=== PATIENT | male | born 1965 | race Two or more races ===

== ENCOUNTER 2024-03-02 20:47 | Emergency (ER) | payer MEDICAID, OTHER ==
[~2024-03-02] VITALS: Ht 177.8 cm; Wt 107.7 kg
[2024-03-02 22:40] VITALS: BP 105/80; PULSE 90; RESP 18; TEMP 98; O2SAT 97
[2024-03-02] MEDS ORDERED: COLC1CAP PO (22:55)
--- NOTE | 2024-03-02 22:55 | ED.PDOC ---
Back pain HPI HPI Comments This is a 58-year-old male presents to the ED chief complaint right hand pain 2 days. Patient states stiffness and redness right hand knuckle pointer finger. He has not taken anything [id number], reports history of gout currently on allopurinol. Denies fevers, chills, nausea, vomiting or injury. Chief Complaint: Upper Extremity Time Seen by MD: 21:05 Reviewed Notes: Nurses Notes, Medications, Allergies Allergies: Coded Allergies: Ibuprofen (Verified Allergy, Unknown, 03/02/24) Home Meds Active Scripts Colchicine (Colchicine) 0.6 Mg Cap, 0.6 MG PO ONCE for 1 Day, #3 CAP 2 capsules now repeat 1 capsule in 1 hour. Prov:CARLIE RODRIGUEZ RAG WASHER 03/02/24 Information Source: Patient Mode of Arrival: Ambulatory Past Medical History PAST MEDICAL HISTORY: Denies Past Medical History (Other): Gout Surgical History: Denies all surgeries Constitutional: denies: chills, diaphoresis, fatigue, fever, malaise, sweats, weakness, others EENTM: denies: blurred vision, double vision, ear bleeding, ear discharge, ear drainage, ear pain, ear ringing, eye pain, eye redness, hearing loss, mouth pain, mouth swelling, nasal discharge, nose bleeding, nose congestion, nose pain, photophobia, tearing, throat pain, throat swelling, voice changes, others Respiratory: denies: cough, hemoptysis, orthopnea, SOB at rest, shortness of breath, SOB with excertion, stridor, wheezing, others Cardiovascular: denies: chest pain, dizzy spells, diaphoresis, Dyspnea on exertion, edema, irregular heart beat, left arm pain, lightheadedness, palpit ations, PND, syncope, others Gastrointestinal: denies: abdomen distended, abdominal pain, blood streaked b owels, constipated, diarrhea, dysphagia, difficulty swallowing, hematemesis, melena, nausea, poor appetite, poor fluid intake, rectal bleeding, rectal pain, vomiting, others Genitourinary: denies: burning, dysuria, flank pain, frequency, hematuria, incontinence, penile discharge, penile sore, pain, testicle pain, testicle swelling, urgency, others Neurological: denies: dizziness, fainting, headache, left sided numbness, left sided weakness, numbness, paresthesia, pre-existing deficit, right sided numbness, right sided weakness, seizure, speech problems, tingling, tremors, weakness, others Musculoskeletal: reports: joint swelling (Right pointer finger knuckle); denies: back pain, gout, joint pain, muscle pain, muscle stiffness, neck pain, others Integumetry: denies: bruises, change in color, change in hair/nails, dryness, laceration, lesions, lumps, rash, wounds, others Allergic/Immunocompromised: denies: Difficulty Healing, Frequent Infections, Hives, Itching, others Endocrine: denies: excessive hunger, excessive sweating, excessive thirst, excessive urination, flushing, intolerance to cold, intolerance to heat, unexplained weight gain, unexplained weight loss, others Psychiatric: denies: anxiety, bipolar disorder, depression, hopeless, panic disorder, schizophrenia, sleepless, suicidal, others Physical Exam General Appearance: No Apparent Distress, Normal HEENT: Pharynx Normal Neck: Full Range of Motion, Non-Tender Respiratory: Lungs Clear, No Respiratory Distress, Normal Breath Sounds Cardiovascular: No Edema, No JVD, No Murmur, No Gallop, Normal Peripheral Pulses, Regular Rate/Rhythm Breast Exam: Deferred Gastrointestinal: No Organomegaly, Non Tender, No Pulsatile Mass, Normal Bowel Sounds, Soft Genitalia: Deferred Pelvic: Deferred Rectal: Deferred Extremities: Normal capillary refill, Normal inspection, Normal range of motion, Non-tender, No pedal edema Musculoskeletal : Location: Right (Right pointer finger noted erythema moderate tenderness to touch trace edema. No noted streaking, excoriations, lesions, abrasions or lacerations. Ecchymosis) Apperance: Normal Neurologic: Alert, business liaison officer II-XII nml as Tested, No Motor Deficits, Normal Affect, Normal Mood, No Sensory Deficits Cerebellar Function: Normal Reflexes: Normal Skin: Dry, Normal Color, Warm Lymphatic: No Adenopathy Was a procedure done? Was a procedure done?: No Back Pain Differential Dx Differential Diagnosis: Musculoskeletal Pain X-Ray, Labs, Meds, VS Vital Signs Date Time Temp Pulse Resp B/P (MAP) Pulse Ox O2 Delivery O2 Flow Rate FiO2 03/02/24 22:40 98.0 90 18 105/80 (88) 96 98.0 12/25/24 22:40 90 18 97 Room Air* 0 21 03/02/24 21:34 97.9 93 18 105/80 (88) 95 Current Medications Medications (Trade) Dose Ordered Sig/Rupert Route Start Time Stop Time Status Last Admin Dexamethasone Sodium Phosphate (Decadron Injection) 10 mg ONCE ONCE IM 03/02/24 23:00 03/02/24 23:01 DC 03/02/24 23:02 X-Ray, Labs, Meds, VS Comment Patient Decadron 10 mg IM reports improvement requesting discharge at this time. Patient on colchicine advised to continue allopurinol follow up with his PCP in 2-3 days consider uric acid levels if symptoms persist. Rest, elevate extremity use heat or ice. ER return precautions given patient indicated understanding agrees with discharge plan of care. Time of 1ST Reevaluation: 22:50 Reevaluation 1ST: Improved Patient Education/Counseling: Diagnosis, Treatment, Prognosis, Need For Follow Up Family Education/Counseling: No Family Present Departure 1 Departure Time of Disposition: 22:55 Impression: Primary Impression: Acute gout Qualified Codes: M10.9 - Gout, unspecified Disposition: 01 HOME / SELF CARE / HOMELESS Condition: Stable e-Prescriptions Colchicine (Colchicine) 0.6 Mg Cap 0.6 MG PO ONCE for 1 Day, #3 CAP 2 capsules now repeat 1 capsule in 1 hour. Prov: CARLIE RODRIGUEZ 03/02/24 Discharged With: Self Critical Care Note Critical Care Time?: No Stability Stability form required: CARLIE Hernadez Mar 02, 2024 22:55
[2024-03-02] MEDS: DexAMETHasone SOD PHOS 10MG/1ML VIAL INJ IM ONE (23:02)
== END 2024-03-02 23:20 | disposition home or self-care (01) ==
LOC: ER 20:47
DX: M10.9 Gout, unspecified (principal); Z88.6 Allergy status to analgesic agent; Z79.899 Other long term (current) drug therapy
CPT/HCPCS: 96372; 99283; J1100

== ENCOUNTER 2024-03-04 18:31 | Emergency (ER) | payer MEDICAID ==
[~2024-03-04] VITALS: Ht 177.8 cm; Wt 103.0 kg
[~2024-03-04 18:31] MED LIST: COLC1CAP PO
--- NOTE | 2024-03-04 20:05 | ED.PDOC ---
Musculoskeletal HPI Comments 58y M who presents to the ED for chief complaint of upper extremity pain. Pt states he was recently dx with gout a few days ago. Pt states he has gout of his R hand and states he received steroid shot and given perscription of colchicine but states due to insurance, he was unable to afford it and came to the ED for pain management. Pt rates the pain 10/10, constant, with no associated exacerbating or relieving factors. Pt otherwise denies any other symptoms at this time. Chief Complaint: Upper Extremity Time Seen by MD: 20:05 Reviewed Notes: Medications Allergies: Coded Allergies: Ibuprofen (Verified Allergy, Unknown, 03/02/24) Information Source: Patient Mode of Arrival: Ambulatory Past Medical History PAST MEDICAL HISTORY: Denies Surgical History: Denies all surgeries Social History Smoker: Non-Smoker Alcohol: Denies ETOH Use Drugs: Denies Drug Use Lives In: Home Constitutional: denies: chills, diaphoresis, fatigue, fever, malaise, sweats, weakness, others EENTM: denies: blurred vision, double vision, ear bleeding, ear discharge, ear drainage, ear pain, ear ringing, eye pain, eye redness, hearing loss, mouth bryan n, mouth swelling, nasal discharge, nose bleeding, nose congestion, nose pain, photophobia, tearing, throat pain, throat swelling, voice changes, others Respiratory: denies: cough, hemoptysis, orthopnea, SOB at rest, shortness of breath, SOB with excertion, stridor, wheezing, others Cardiovascular: denies: chest pain, dizzy spells, diaphoresis, Dyspnea on exertion, edema, irregular heart beat, left arm pain, lightheadedness, palpitations, PND, syncope, others Gastrointestinal: denies: abdomen distended, abdominal pain, blood streaked bowels, constipated, diarrhea, dysphagia, difficulty swallowing, hematemesis, melena, nausea, poor appetite, poor fluid intake, rectal bleeding, rectal pain, vomiting, others Genitourinary: denies: burning, dysuria, flank pain, frequency, hematuria, incontinence, penile discharge, penile sore, pain, testicle pain, testicle swelling, urgency, others Neurological: denies: dizziness, fainting, headache, left sided numbness, left sided weakness, numbness, paresthesia, pre-existing deficit, right sided numbness, right sided weakness, seizure, speech problems, tingling, tremors, weakness, others Musculoskeletal: reports: joint pain (R hand); denies: back pain, gout, joint swelling, muscle pain, muscle stiffness, neck pain, others Integumetry: denies: bruises, change in color, change in hair/nails, dryness, laceration, lesions, lumps, rash, wounds, others Allergic/Immunocompromised: denies: Difficulty Healing, Frequent Infections, Hives, Itching, others Hematologic/Lymphatic: denies: anemia, blood clots, easy bleeding, easy bruising, swollen glands, others Endocrine: denies: excessive hunger, excessive sweating, excessive thirst, excessive urination, flushing, intolerance to cold, intolerance to heat, unexplained weight gain, unexplained weight loss, others Psychiatric: denies: anxiety, bipolar disorder, depression, hopeless, panic disorder, schizophrenia, sleepless, suicidal, others All Other Systems: Reviewed and Negative Physical Exam General Appearance: No Apparent Distress, Normal HEENT: Normal ENT Inspection, Pharynx Normal, TMs Normal Neck: Full Range of Motion, Non-Tender, Normal, Normal Inspection Respiratory: Chest Non-Tender, Lungs Clear, No Accessory Muscle Use, No Respiratory Distress, Normal Breath Sounds Cardiovascular: No Edema, No JVD, No Murmur, No Gallop, Normal Peripheral Pulses, Regular Rate/Rhythm Breast Exam: Deferred Gastrointestinal: No Organomegaly, Non Tender, No Pulsatile Mass, Normal Bowel Sounds, Soft Genitalia: Deferred Pelvic: Deferred Rectal: Deferred Extremities: Other (R hand sweling and pain) Musculoskeletal : Apperance: Normal Neurologic: Alert, upper leather cutter II-XII nml as Tested, No Motor Deficits, Normal Affect, Normal Mood, No Sensory Deficits Cerebellar Function: Normal Reflexes: Normal Skin: Dry, Normal Color, Warm Lymphatic: No Adenopathy Was a procedure done? Was a procedure done?: No Differential Diagnosis EXT Differential Diagnosis: Sprain, Gout, Rheumatoid, Arthritis X-Ray, Labs, Meds, VS Vital Signs Date Time Temp Pulse Resp B/P (MAP) Pulse Ox O2 Delivery O2 Flow Rate FiO2 03/04/24 20:54 98.1 87 16 114/71 (85) 96 98.1 03/04/24 19:00 98.2 87 16 105/83 (90) 96 Time of 1ST Reevaluation: 20:35 Reevaluation 1ST: Unchanged Patient Education/Counseling: Diagnosis, Treatment, Prognosis, Need For Follow Up Family Education/Counseling: No Family Present Departure 1 Departure Time of Disposition: 17:47 Impression: Primary Impression: Acute gout Qualified Codes: M10.9 - Gout, unspecified Disposition: 01 HOME / SELF CARE / HOMELESS Condition: Good Discharged With: Self Critical Care Note Critical Care Time?: No Stability Stability form required: No Heart Score Heart Score: Heart Score Response (Comments) Value History N/A 0 EKG N/A 0 Age N/A 0 Risk Factors N/A 0 Troponin N/A 0 Total 0 I personally scribed for QUINN HARDY MD ([facility]) on 03/04/24 at 20:05. Electronically submitted by Solo Rosenthal ([facility] [place]). I personally scribed for QUINN HARDY MD ([email or web address]) on 03/04/24 at 20:10. Electronically submitted by Solo Rosenthal ([facility] [place]). QUINN HARDY MD Mar 04, 2024 20:05
--- NOTE | 2024-03-04 20:31 | DVH ---
CLINICAL INDICATION: pain and swelling TECHNIQUE: 3 radiographic views of the right hand were obtained. Comparison: None FINDINGS/IMPRESSION: There is no evidence of acute fracture or dislocation. The visualized joint space is well maintained. The alignment is anatomical. There is no radiopaque foreign body.
[2024-03-04] MEDS: KETOROLAC TROMETH 30 MG/ML 1ML VIAL IM ONE (20:49)
[2024-03-04] MEDS: DexAMETHasone SOD PHOS 4 MG/1ML SDV INJ IM ONE (20:49)
[2024-03-04 20:54] VITALS: BP 114/71; PULSE 87; RESP 16; TEMP 98.1; O2SAT 96
== END 2024-03-04 20:55 | disposition home or self-care (01) ==
LOC: ER 18:31
DX: M10.9 Gout, unspecified (principal); Z88.6 Allergy status to analgesic agent
CPT/HCPCS: 73130; 96372; 99284; J1885; J1100

== ENCOUNTER 2024-11-02 16:35 | Emergency (ER) | payer MEDICAID ==
[~2024-11-02] VITALS: Ht 177.8 cm; Wt 119.4 kg
[2024-11-03 00:57] VITALS: BP 103/74; TEMP 97.8
[2024-11-03 00:59] VITALS: PULSE 85; RESP 18; O2SAT 92
[2024-11-03] MEDS ORDERED: PRED20TA2 PO (01:04)
--- NOTE | 2024-11-03 01:04 | ED.PDOC ---
Musculoskeletal HPI Comments 59-year-old male presents to ER with complaints of right 2nd finger pain x1 day. Patient with past medical history significant for gout reports he has been experiencing pain/swelling to right 2nd finger. Notes he has had similar symptoms in the past related to a gout that is relieved with "steroids". He ra navdeep his current pain a 7/10 to right 2nd finger without radiation and presents to ER in no distress. Notes he does take allopurinol as directed. Denies fever, body aches, chills, injury, numbness/tingling or any further symptoms/complaints Chief Complaint: Upper Extremity Paresis Time Seen by MD: 18:15 Primary Care Provider: [facility]FORT Reviewed Notes: Nurses Notes, Medications, Allergies Allergies: Coded Allergies: Ibuprofen (Verified Allergy, Unknown, 03/02/24) Home Meds Active Scripts Prednisone (Prednisone) 20 Mg Tab, 20 MG PO BID for 5 Days, #10 TAB 0 Refills Prov:DORA HUANG 11/03/24 Information Source: Patient Mode of Arrival: Ambulatory Past Medical History PAST MEDICAL HISTORY: CHF, Gout Surgical History: Denies all surgeries Family History Family History: Unknown Social History Smoker: Non-Smoker Alcohol: Denies ETOH Use Drugs: Denies Drug Use Lives In: Home Constitutional: denies: chills, diaphoresis, fatigue, fever, malaise, sweats, weakness, others EENTM: denies: blurred vision, double vision, ear bleeding, ear discharge, ear drainage, ear pain, ear ringing, eye pain, eye redness, hearing loss, mouth pain, mouth swelling, nasal discharge, nose bleeding, nose congestion, nose pain, photophobia, tearing, throat pain, throat swelling, voice changes, others Respiratory: denies: cough, hemoptysis, orthopnea, SOB at rest, shortness of breath, SOB with excertion, stridor, wheezing, others Cardiovascular: denies: chest pain, dizzy spells, diaphoresis, Dyspnea on exertion, edema, irregular heart beat, left arm pain, lightheadedness, palpitations, PND, syncope, others Gastrointestinal: denies: abdomen distended, abdominal pain, blood streaked bowels, constipated, diarrhea, dysphagia, difficulty swallowing, hematemesis, melena, nausea, poor appetite, poor fluid intake, rectal bleeding, rectal pain, vomiting, others Genitourinary: denies: burning, dysuria, flank pain, frequency, hematuria, incontinence, penile discharge, penile sore, pain, testicle pain, testicle swelling, urgency, others Neurological: denies: dizziness, fainting, headache, left sided numbness, left sided weakness, numbness, paresthesia, pre-existing deficit, right sided numbness, right sided weakness, seizure, speech problems, tingling, tremors, weakness, others Musculoskeletal: reports: others (As stated in HPI) Integumetry: reports: others (As stated in HPI) Allergic/Immunocompromised: denies: Difficulty Healing, Frequent Infections, Hives, Itching, others Hematologic/Lymphatic: denies: anemia, blood clots, easy bleeding, easy bruising, swollen glands, others Endocrine: denies: excessive hunger, excessive sweating, excessive thirst, excessive urination, flushing, intolerance to cold, intolerance to heat, unexplained weight gain, unexplained weight loss, others Psychiatric: denies: anxiety, bipolar disorder, depression, hopeless, panic disorder, schizophrenia, sleepless, suicidal, others Physical Exam General Appearance: No Apparent Distress, Obese HEENT: PERRL/EOMI Neck: Full Range of Motion, Non-Tender, Normal Respiratory: Chest Non-Tender, Lungs Clear, No Accessory Muscle Use, No Respiratory Distress, Normal Breath Sounds Cardiovascular: No Murmur, No Gallop, Regular Rate/Rhythm Breast Exam: Deferred Gastrointestinal: NOT DONE Genitalia: Deferred Pelvic: Deferred Rectal: Deferred Extremities: Normal capillary refill, Normal range of motion Musculoskeletal : Extremity Location: Finger 2 (TTP/mild swelling noted to right 2nd finger. Patient able to fully move all fingers right hand. No erythema appreciated. Pulses intact) Neurologic: Alert, No Motor Deficits, Normal Affect, Normal Mood, No Sensory Deficits Cerebellar Function: Normal Reflexes: Normal Skin: Dry, Normal Color, Warm Peripheral Pulses: 2+ Radial (R), 2+ Radial (L), 2+ Brachial (R), 2+ Brachial (L) Lymphatic: No Adenopathy Was a procedure done? Was a procedure done?: No Sedation Sedation?: No Differential Diagnosis EXT Differential Diagnosis: Cellulitis, Fracture, Dislocation, Strain, Neurovascular injury X-Ray, Labs, Meds, VS Vital Signs Date Time Temp Pulse Resp B/P (MAP) Pulse Ox O2 Delivery O2 Flow Rate FiO2 8/28/25 00:59 85 18 92 Room Air 11/03/24 00:57 97.8 85 16 103/74 (84) 92 97.8 11/02/24 16:36 98.0 89 18 101/72 95 98.0 Toradol 60 mg IM ordered Solu-Medrol 125 mg IM ordered Patient had improvement in symptoms and in no distress prior to discharge Advised to continue allopurinol as prescribed Advised to follow up with PCP in 1-2 days Patient verbalized understanding and agreeable with current plan of care Advised to return to ER immediately if symptoms worsen Time of 1ST Reevaluation: 00:54 Reevaluation 1ST: N/A Patient Education/Counseling: Diagnosis, Treatment, Prognosis, Need For Follow Up Family Education/Counseling: No Family Present Departure 1 Departure Time of Disposition: 01:02 Impression: Primary Impression: Acute gout Qualified Codes: M10.9 - Gout, unspecified Disposition: 01 HOME / SELF CARE / HOMELESS Condition: Stable e-Prescriptions Prednisone (Prednisone) 20 Mg Tab 20 MG PO BID for 5 Days, #10 TAB 0 Refills Prov: DORA HUANG 11/03/24 Discharged With: Self Critical Care Note Critical Care Time?: No Stability Stability form required: No Heart Score Heart Score: Heart Score Response (Comments) Value History N/A 0 EKG N/A 0 Age N/A 0 Risk Factors N/A 0 Troponin N/A 0 Total 0 DORA HUANG Nov 03, 2024 01:04
[2024-11-03] MEDS: methylPREDNISolone SOD SUCC 125 MG/2 ML VL IM ONE (01:10)
[2024-11-03] MEDS: KETOROLAC TROMETH 60MG/2ML VIAL IM ONE (01:11)
== END 2024-11-03 01:21 | disposition home or self-care (01) ==
LOC: ER 16:35
DX: M10.9 Gout, unspecified (principal); I50.9 Heart failure, unspecified; Z88.6 Allergy status to analgesic agent; Z79.52 Long term (current) use of systemic steroids; Z79.899 Other long term (current) drug therapy
CPT/HCPCS: 96372; 99284; J1885; J2919